=== PATIENT | male | born 1955 | race Caucasian/White ===

== ENCOUNTER 2016-10-04 12:26 | Inpatient (IN) | payer OTHER ==
[2016-10-04] VITALS (8 sets, daily range): BP systolic 103–133; BP diastolic 58–80; PULSE 64–165; RESP 16–32; O2SAT 95–97
[~2016-10-04] VITALS: Ht 177.8 cm; Wt 112.8 kg
[2016-10-04] MEDS ORDERED: Adenosine 3 mg/mL 2 mL Inj ONE (12:37)
[2016-10-04] MEDS ORDERED: Diltiazem 5 mg/mL 5 mL Inj ONE (12:43)
--- NOTE | 2016-10-04 12:51 | ED.REPORT ---
HPI-General Illness Date of Service Oct 04, 2016 ED Provider: Hilary Lee Patient is a 61 year old male with a hx of HTN, hyperlipidemia, and TIA who presents to the ED complaining of SOB. He was in his yard on a ladder, cutting tree branches when he became short of breath. On his way to the hospital he had to pull off the freeway twice due to near syncope. He denies headache, chest pain, or any other symptoms. He has not had thyroid problems. He reports he also had a "heart racing incident " happen 3 days ago but thought it was related to the food he was eating. Nursing Notes Stated Complaint: NEAR SYNCOPE Chief Complaint: General Complaint Nursing Notes Reviewed: Yes Allergies: Coded Allergies: Penicillins (Verified Allergy, Mild, 10/04/16) Rupitxx-Tho-Gex Reductase Inhibitor (Verified Allergy, Mild, 10/04/16) Scheduled Fluticasone Propionate (Flonase Allergy Relief) 50 Mcg/Actuation [place].susp 2 SPRAY NOSTRIL BID Tamsulosin ER (Tamsulosin ER) 0.4 Mg Cap.er.24h 0.4 MG PO HS Verapamil SR (Verapamil SR) 180 Mg Cap24h.pel 180 MG PO QAM General Time Seen by MD: 12:50 Chief Complaint Other (Shortness of breath) Hx Obtained From: Patient Arrived By: Walk-in Sudden in Onset?: Yes Onset Occurred: Just prior to arrival Symptom Duration: Since onset Similar Sx Previous: No Past Medical History Past Medical History Notes: MRA 2 years ago with no brain abnormalities PCP Rosy Borja Past Medical History Urninary retention Reports: Hyperlipidemia, Hypertension, Transient ischemic attack, Denies: Diabetes mellitus Ambulatory Status Independent Review of Systems Full Review of Systems Respiratory: Reports: Shortness of breath Cardiovascular: Reports: Palpitations, Syncope, Denies: Chest pain Neurologic: Denies: Headache Complete sys rev & neg: except as marked. Physical Exam Vital Signs Vital Signs Date Time Temp Pulse Resp B/P Pulse Ox O2 Delivery O2 Flow Rate FiO2 10/04/16 14:24 119 20 103/72 97 Nasal Cannula 2 10/04/16 13:18 90 32 113/58 95 Nasal Cannula 2 10/04/16 12:29 36.3 165 20 116/75 97 Room Air Initial VS: Reviewed, Vital signs abnormal Head / Eyes: Atraumatic, Normocephalic Neck: Full range of motion Abdomen / GI: Soft, Non-tender Extremities: No swelling Skin: Warm, Dry Neurologic: Alert, Oriented, Nonfocal Psychiatric: Mood/affect normal, Behavior normal, Normal thought content General/Constitutional: Awake, Alert, Well developed Neck: Thyroid NL Respiratory / Chest: Breath sounds NL, Breath sounds = bilat, No respiratory distress Heart Rate / Rhythm: Positive: Irreg irregular rhythm, Tachycardia Interpretation & Diagnostics Lab Results Interpretation Result Diagram: 10/04/16 1245 10/04/16 1245 Test 10/04/16 12:45 10/04/16 13:45 10/04/16 14:40 White Blood Count 11.3th/mm3 (3.8-10.1) Red Blood Count 5.67mil/mm3 (4.40-5.80) Hemoglobin 16.3g/dL (13.8-17.2) Hematocrit 47.6% (41.0-50.0) Mean Corpuscular Volume 84.0fL (81-100) Mean Corpuscular Hemoglobin 28.7pg (27.0-35.0) Mean Corpuscular Hemoglobin Concent 34.2% (32.0-37.0) Red Cell Distribution Width 13.3% (12.3-15.4) Platelet Count 295bil/L (150-400) Neutrophils (%) (Auto) 79.2% (40-74) Lymphocytes (%) (Auto) 10.8% (14-46) Monocytes (%) (Auto) 6.4% (4-12) Eosinophils (%) (Auto) 2.9% (0-5) Basophils (%) (Auto) 0.5% (0-3) Sodium Level 140mEq/L (134-144) Potassium Level 4.0mEq/L (3.5-5.2) Chloride Level 103mEq/L (97-108) Carbon Dioxide Level 20mmol/L (18-29) Blood Urea Nitrogen 16mg/dL (8-27) Creatinine 1.31mg/dL (0.76-1.27) Estimat Glomerular Filtration Rate 59mL/min (>59) Glucose Level 101mg/dL (60-99) Calcium Level 9.9mg/dL (8.5-10.1) Magnesium Level 2.2mg/dL (1.6-2.6) Total Bilirubin 0.4mg/dL (0.0-1.2) Aspartate Amino Transf (AST/SGOT) 27U/L (0-50) Alanine Aminotransferase (ALT/SGPT) 41U/L (0-44) Alkaline Phosphatase 64U/L (25-160) Troponin T 0.013ug/L (0.0-0.011) Total Protein 7.0g/dL (6.4-8.4) Albumin 4.3g/dL (3.4-5.0) Hold Urine Received (Received) ECG Interpretation ECG Interpretation: In and out of Sinus and atrial flutter with RVR rate of 156 Time: 12:52 Interpreted by: ED physician X-Ray Chest Interpretation Chest Xray Interpretation: IMPRESSION: Negative chest. No acute cardiopulmonary process is evident. Dictated by: Mahin Head M.D. on 10/04/2016 at 12:57 Approved by: Mahin Head M.D. on 10/04/2016 at 12:57 View: Portable, 1 view Interpretation / Wet Read by: Interpret - Radiologist Re-Eval/Medical Decision Med Decision/Clinical Course 61-year-old woman with a history of hypertension and BPH presents with paroxysmal atrial fibrillation/atrial flutter with rapid ventricular response. Apparently he was up on a ladder noticed that he felt lightheaded we came down noticed that he was unable to feel his radial pulse. Medics were called and found him to be in atrial flutter in the 220 range he felt slightly short of breath mildly lightheaded but was alert and able to give a coherent history. Denies any drug use stimulants thyroid is being checked he says that he has had an episode of rapid heart rate that he noted on Tuesday but no previous history of such. During our exam his rate and rhythm is entirely erratic. He will convert to sinus rhythm for anywhere from 30 seconds to 3 minutes and will go to an atrial fibrillation in the 140-160 range than to an atrial flutter in the 200-220 range and this back and forth between each of these rapidly and seemingly without much distress. He is very aware of the rapid rhythms. His systolic blood pressures in the 100 100s and 10 range. He did take his morning verapamil for blood pressure control. He is given a liter of fluid to help with blood pressure support so we have more options with rate control medications. Spoke with Dr. Cook, cardiology. He agreed with trying amiodarone and will do an initial load of 150 mg IV over an hour to try and avoid any hypotensive effects. Will be admitted to stepdown bed with amiodarone drip. Primary service will be the hospitalist service and Dr. Neves will consult Time of Eval: 13:30 Re-Evaluation/Progress Note: Rechecked patient. Discussed plan for admission. Patient understands and agrees with plan. All questions addressed at this time. Consultation : Referral / Consult Name: Jack Cook MD Consulted With: Cardiology Call Returned at: 13:36 Felling Machine Operator: Agrees with eval, Agrees with plan Note: Discussed pt case. Suggests amiodarone. Agrees to consult. Counseled Regarding: Diagnosis, Lab results, Need for admission Discharge & Departure Primary Impression: Atrial fibrillation with RVR Additional Impression: Elevated troponin Disposition: ADMITTED TO HOSPITAL Discharge Condition All VS Reviewed: Yes Condition: Stable Referrals: OTHER,PHYSICIAN Crit Care Except Billable Proc Time Spent: 30-74 minutes Services Performed: Patient management by me, Time spent at bedside, Reviewing test results, Reviewing imaging, Discussing patient care, Documentation in record, Time with fam/surrogate Scribe Attestation Portions of this note were transcribed by Jack Mart. I, Dr. Lee personally performed the history, physical exam and medical decision-making; I reviewed and confirmed the accuracy of the information in the transcribed note. Signed by: Jack Mart 10/04/16, 1442 Hilary Lee MD Oct 04, 2016 12:51 JACK MART Oct 04, 2016 12:55
[2016-10-04] MEDS ORDERED: 0.9% Sodium Chloride 1,000 ML IV ONE (12:55)
[2016-10-04 13:01] LABS: BASOPHILS % (AUTO) 0.5 % (0-3); EOSINOPHILS % (AUTO) 2.9 % (0-5); MONOCYTES % (AUTO) 6.4 % (4-12); Mean Corpuscular Hemoglobin 28.7 pg (27.0-35.0); NEUTROPHILS % (AUTO) 79.2 % (40-74); Platelet Count 295 bil/L (150-400)
[2016-10-04 13:26] LABS: TROPONIN T 0.013 ug/L (0.0-0.011)
[2016-10-04 13:37] LABS: Magnesium 2.2 mg/dL (1.6-2.6)
[2016-10-04] MEDS ORDERED: Amiodarone 150 mg/100 mL D5W 150 MG in IV Premix 1 EACH IV ONE (13:45)
--- NOTE | 2016-10-04 13:58 | DRSVH ---
PROCEDURE: X-RAY CHEST ONE VIEW, PORTABLE ([id number]) INDICATIONS: TACHYCARDIA TECHNIQUE: One view of the chest was acquired. COMPARISON: None. FINDINGS: Surgical changes and devices: None. Lungs and pleura: No pleural effusions or pneumothorax. Lungs are clear. Mediastinum: Mediastinal contours appear normal. Heart size is normal. Bones and chest wall: No suspicious bony lesions. Overlying soft tissues appear unremarkable. IMPRESSION: Negative chest. No acute cardiopulmonary process is evident. Dictated by: Mahin Head M.D. on 10/04/2016 at 12:57 Approved by: Mahin Head M.D. on 10/04/2016 at 12:57
[2016-10-04] MEDS ORDERED: TAMS0.4C29 PO (14:30)
[2016-10-04] MEDS ORDERED: FLUT9.9S NOSTRIL (14:30)
[2016-10-04] MEDS ORDERED: VERA180C4 PO (14:30)
[2016-10-04] MEDS ORDERED: Ondansetron 2 mg/mL 2 mL Inj IVPUSH PRN (15:20)
[2016-10-04] MEDS ORDERED: Alum-Mag Hydrox-Simeth 30 mL Suspension PO PRN (15:20)
[2016-10-04] MEDS ORDERED: Polyethylene Glycol (PEG) 17 Gm Powder PO PRN (15:20)
--- NOTE | 2016-10-04 17:08 | NUR ---
Admit The pt was admitted to the unit at 1600 from the ED. VSS; TELE SR in the 70-80's. No complaints of pain. Pt oriented to the room; A&O and states no needs at this time.
[2016-10-04] MEDS: Verapamil SR 180 mg ER12 Tablet PO SCH (18:20)
--- NOTE | 2016-10-04 18:25 | PCM.HPMED ---
Subjective Date of Service Oct 04, 2016 Primary Provider: Admitting Physician: David Mckeon MD Primary Care Physician: Alexandra Hernandez MD Attending Physician: David Mckeon MD Chief Complaint: Shortness of breath History of Present Illness: Patient is a 61 year old male with a hx of HTN, hyperlipidemia, and TIA who presents to the ED complaining of SOB. He was in his yard on a ladder, cutting tree branches when he became short of breath. On his way to the hospital he had to pull off the freeway twice due to near syncope. He denies headache , no chest pain, or any other symptoms. He had a pervious episode a couple of weeks ago , feeling his heart was racing . He said he though it was something he ate. The episode revolved in its own He has few past medical problem beyond hypertension for which he takes verapmil and BPH IN ER patient was tachycardic with hHR in the 120. Review of Systems: A comprehensive review x 12 points is negative except for shortness of breath as described in HPI Allergies Coded Allergies: Penicillins (Verified Allergy, Mild, 10/04/16) Jzbfncz-Kjc-Ysq Reductase Inhibitor (Verified Allergy, Mild, 10/04/16) Home Medications Fluticasone Propionate (Flonase Allergy Relief) 50 Mcg/Actuation [place].susp 2 SPRAY NOSTRIL BID Tamsulosin ER (Tamsulosin ER) 0.4 Mg Cap.er.24h 0.4 MG PO HS Verapamil SR (Verapamil SR) 180 Mg Cap24h.pel 180 MG PO QAM PMH Urinary retention Hyperlipidemia, Hypertension Transient ischemic attack, Surgical History Abdominal and inguinal hernia repair Family History Reviewed and non contributory to the present illness Social History Hx Alcohol Use: Yes (maybe once a year) Hx Substance Use: No Living Arrangement: with Family Exam Vital Signs Vital Sign - Last Date Time Temp Pulse Resp B/P Pulse Ox O2 Delivery O2 Flow Rate FiO2 10/04/16 16:56 37.0 64 16 122/78 97 Room Air 10/04/16 15:56 2 Exam Genera; Overweight male. NAD, BMI 34 HEENT: Atraumatic, Normocephalic, sclerae is anicteric Neck: Full range of motion. No JVD, trachea is midline Chest : Normal respiratory effort. No chest wall tenderness Lung :Clear B/l. Heart : S1S2, regular, no gallop, no murmur Abdomen / GI: Soft, Non-tender, no palp mass. BS normal all quadrants Extremities: No swelling, no cyanosis Skin: Warm, Dry, no ulcer. Neurologic: Alert, Oriented, Non focal Psychiatric: Mood/affect normal, Behavior normal, Normal thought content Lab and Diagnostics Result Diagram: 10/04/16 1245 10/04/16 1245 X-Rays, CTs and MRIs Chest X-ray personally reviewed : Negative chest. No acute cardiopulmonary process is evident. Assessment & Plan 1. Tachy / Bradycardia syndrome 2. Hypertension 3. Hyperlipidemia 4. H/o TIA Patient is hemodynamically and clinically stable at this time . HR is controlled after IV amiodarone injection. ER physician contacted groundwater monitoring technician cardiology who will see the patient in consultation . Telemetry monitoring. Serial troponin . Obtain echocardiogram Lipid panel , TSH, A1c Continue Verapamil SR 180 mg PO daily This is an initial plan od care and will be per clinical course and per cardiology Patient discussed over the phone With ER physician Dr Lee VTE Prophylaxis: Sub-Q Heparin (Unfractionated) Resuscitation Status: CPR: Attempt Resuscitation Time spent 75 minutes David Mckeon MD Oct 04, 2016 18:25
[2016-10-05] VITALS (7 sets, daily range): BP systolic 115–141; BP diastolic 59–77; PULSE 58–73; RESP 17–23; O2SAT 94–97
--- NOTE | 2016-10-05 04:06 | NUR ---
Cardiac/Resp Patient resting in bed this shift, denies chest pain or shortness of breath, HR SB-SR and no ectopy noted, patient states he is hard of hearing and has 85% hearing loss in right ear, no distress noted, no A-Fib with RVR this shift, HR has been 50-60's. Uneventful shift, will continue to monitor. Addendum: 10/05/16 at 0414 by SHARON MARTINEZ RN Amended: Links added.
[2016-10-05 04:26] LABS: TROPONIN T 0.01 ug/L (0.0-0.011)
[2016-10-05] MEDS ORDERED: Fluticasone 0.05% 15 Spray/2 Gm 16 Gm Nasal Spray NASAL SCH (08:30)
[2016-10-05] MEDS: Verapamil SR 180 mg ER12 Tablet PO SCH (08:47)
--- NOTE | 2016-10-05 16:35 | NUR ---
Social Work Note: Screen Note Data& Assessment: EMR reviewed. Antonio Holden is a 61 year old male admitted on 10/04/2016 for AFIB Flutter with RVR. Pt has [employer] Traditional Med Plan and sees Alexandra Javier MD for primary care. [place] in [place] family and is independent at baseline. Pt independent in his room. No discharge needs identified at this time. SW to continue to follow for pt needs and MD orders if indicated. Plan: Anticipated discharge home via POV when medically ready. SW to continue to follow for pt needs and MD orders if indicated. BRONSON Shay
--- NOTE | 2016-10-05 17:01 | PCM.DIMED ---
Discharge Instructions Date of Service Oct 05, 2016 Dates of Hospitalization Oct 04, 2016 at 15:46 Discharge Diagnosis Discharge Diagnosis 1. Paroxysmal atrial fibrillation , with rapid response. Resolved. 2. Hypertension 3. Hyperlipidemia 4. H/o TIA Diet Discharge Diet: No restrictions Activity Discharge Activity: No restrictions Call your provider Call your provider for: Shortness of breath, Chest pain Patient Instructions Patient Instructions Please see your PCP, Dr Hernandez within a week. She will likely refer you to a commissions specialist. Follow-up with PCP in: 1 week Preet Oden MD Oct 05, 2016 17:01
[2016-10-05] MEDS ORDERED: APIX5TAB PO (17:06)
[2016-10-05] MEDS ORDERED: METO25TA99 PO (17:06)
--- NOTE | 2016-10-05 17:31 | NUR ---
Discharge instructions discussed for follow-up and medications, plan of care. Feeling well, no c/o SOB or pain, up indep. ECHO done/pending results. Discharged to home with daughter at 1735.
--- NOTE | 2016-10-05 17:39 | DRSVH ---
[facility] [address] [place] [address] Echocardiogram Report Name: CONNIE VILLALOBOS JStudy Date: 10/05/2016 Height: 70 in Hospital Exam Location: [facility] Weight: 249 lb Gender: Male BSA: 2.3 m2 : 1955 Age: 61 yrs BP: 141/74 mmHg Reason For Study: Atrial fibrillation Ordering Physician[facility] By: Jens Dale Referring Physician: VERNA MURILLO Interpretation Summary The left ventricle is borderline dilated. Left ventricular systolic function is mildly reduced. The ejection fraction is estimated to be 45-50%. Regional wall motion abnormalities cannot be excluded due to limited visualization. Suggest repeat a limited study with Definity contrast to further evaluate anterior wall. Assessment of diastolic parameters indicates a relaxation abnormality of the left ventricle, consistent with normal filling pressures. The right ventricle grossly appears normal in size with probable normal systolic function. Pulmonary artery pressures cannot be estimated because of the lack of a measurable TR jet velocity. Both atria are normal in size. There is mild mitral regurgitation. There is no other significant valvular heart disease. The aortic root is mildly dilated. The ascending aorta is mildly enlarged. Procedure: A two-dimensional transthoracic echocardiogram with color flow and Doppler was performed. The study quality was technically adequate. There is no prior echocardiogram noted for this patient. The heart rate ranged between 54-65 bpm during the study. Left Ventricle: The left ventricle is borderline dilated. Left ventricular wall thickness is at the upper limits of normal. Left ventricular systolic function is mildly reduced. The ejection fraction is estimated to be 45-50%. Regional wall motion abnormalities cannot be excluded due to limited visualization. Suggest repeat a limited study with Definity contrast to further evaluate anterior wall. Assessment of diastolic parameters indicates a relaxation abnormality of the left ventricle, consistent with normal filling pressures. Right Ventricle: The right ventricle grossly appears normal in size with probable normal systolic function. Atria: Both atria are normal in size. The interatrial septum is intact with no evidence for an atrial septal defect. Mitral Valve: The mitral valve is normal. There is mild mitral regurgitation. Aortic Valve: The aortic valve is normal in structure and function. No aortic regurgitation is present. Tricuspid Valve: The tricuspid valve is not well visualized, but is grossly normal. Pulmonary artery pressures cannot be estimated because of the lack of a measurable TR jet velocity. Pulmonic Valve: The pulmonic valve leaflets are thin and pliable; valve motion is normal. There is a trace or physiologic amount of pulmonic regurgitation. There is no other significant valvular heart disease. Great Vessels: The aortic root is mildly dilated. The ascending aorta is mildly enlarged. The pulmonary artery is normal size. The IVC is of normal diameter and collapses greater than 50% with a sniff. This suggests a low right atrial pressure of 3 mm Hg. Pericardium/ Pleura There is no pericardial effusion. There is no pleural effusion. MMode/2D Measurements & Calculations LVIDd: 5.8 cm RA long axis: 4.6 cm LVOT diam: 2.3 cm LVIDs: 4.3 cm LA A2 area: 21.7 cm AoV Opening FS: 25.4 % LA A4 area: 19.6 cm RA area: 15.8 cm EPSS: 0.64 cm LA length (vol) RA vol: 46.3 ml Ao root diam IVSd: 1.0 cm RA : 20.2 ml/m2 LVPWd: 1.0 cm LA vol: 68.7 ml asc Aorta Diam LA vol index Ao Arch Diam (Prox : 30.0 ml/m2 Trans): 3.4 cm EDV(MOD-sp2) LV white. diameter/BSA LV sys. diameter/BSA RVD1 (basal) (cm/m^2): 2.5 (cm/m^2): 1.9 : 3.5 cm ESV(MOD-sp2) EF(MOD-sp2) TAPSE: 1.9 cm Doppler Measurements & Calculations Ao V2 max: 140.3 cm/secMV E max alin MV E/A: 0.91 PA V2 max Ao max P.9 mmHg : 59.9 cm/sec Med Peak E' Alin : 73.9 cm/sec Ao mean P.7 mmHg MV A max alin PA mean PG LVOT Max Alin : 66.1 cm/sec E/E' med: 12.4 : 1.3 mmHg : 95.0 cm/sec Lat Peak E' Alin JOSH(I,D): 3.2 cm E/E' lat: 10.2 sev ratio: 0.77 E/e' average MV dec time: 0.18 sec Ao V2 mean LV V1 max PG PA V2 mean : 89.5 cm/sec : 55.7 cm/sec Ao V2 VTI: 24.2 cmLV V1 VTI: 18.6 cm PA pr(Accel) : 27.6 mmHg JOSH(V,D): 2.8 cm2 JOSH indexed to BSA (cm^2/m^2): 1.4 Reading Physician:CRISTINA
--- NOTE | 2016-10-06 07:42 | PCM.DC.MED ---
Discharge Summary Date of Service Oct 05, 2016 Dates of Hospitalization Date of Hospital Admission Oct 04, 2016 at 15:46 Date of Discharge: Oct 05, 2016 Providers: Admitting Physician: David Mckeon MD Primary Care Physician: Alexandra Hernandez MD Attending Physician: David Mckeon MD Diagnosis at Time of Discharge Diagnosis at Time of Discharge 1. Paroxysmal atrial fibrillation , with rapid response. Resolved. 2. Hypertension 3. Hyperlipidemia 4. H/o TIA Consultations None Procedures XRay, CTs & MRIs Chest X-ray personally reviewed : Negative chest. No acute cardiopulmonary process is evident. ECG 12 Lead AF with RVR Cardiac Echo Impression Interpretation Summary The left ventricle is borderline dilated. Left ventricular systolic function is mildly reduced. The ejection fraction is estimated to be 45-50%. Regional wall motion abnormalities cannot be excluded due to limited visualization. Suggest repeat a limited study with Definity contrast to further evaluate anterior wall. Assessment of diastolic parameters indicates a relaxation abnormality of the left ventricle, consistent with normal filling pressures. The right ventricle grossly appears normal in size with probable normal systolic function. Pulmonary artery pressures cannot be estimated because of the lack of a measurable TR jet velocity. Both atria are normal in size. There is mild mitral regurgitation. There is no other significant valvular heart disease. The aortic root is mildly dilated. The ascending aorta is mildly enlarged. Brief History Patient is a 61 year old male with a hx of HTN, hyperlipidemia, and TIA who presents to the ED complaining of SOB. He was in his yard on a ladder, cutting tree branches when he became short of breath. On his way to the hospital he had to pull off the freeway twice due to near syncope. He denies headache , no chest pain, or any other symptoms. He had a pervious episode a couple of weeks ago , feeling his heart was racing . He said he though it was something he ate. The episode revolved in its own He has few past medical problem beyond hypertension for which he takes verapmil and BPH IN ER patient was tachycardic with hHR in the 120. Hospital Course 1. Paroxysmal atrial fibrillation with rapid ventricular response, POA. The patient was admitted with A. fib RVR. The patient was given amiodarone IV and had chemical conversion. No neurologic symptoms. He had good rate control for the remainder of his hospitalization. The patient had a 2-D echo which was negative for atrial dilation or significant bowel disease. He was diagnosed with nonvalvular atrial fibrillation. He was open to the addition of metoprolol for additional rate control as well as initiation of anticoagulation with. He will follow-up with his primary care doctor at [facility] within the next week, Dr. Hernandez. Exam Vital Signs (Last) Date Time Temp Pulse Resp B/P Pulse Ox O2 Delivery O2 Flow Rate FiO2 10/05/16 16:20 36.1 61 23 129/77 97 Room Air 10/04/16 15:56 2 Exam Patient was seen and examined on the day of discharge Test 10/04/16 12:45 10/04/16 13:45 10/05/16 03:22 White Blood Count 11.3th/mm3 (3.8-10.1) Red Blood Count 5.67mil/mm3 (4.40-5.80) Hemoglobin 16.3g/dL (13.8-17.2) Hematocrit 47.6% (41.0-50.0) Mean Corpuscular Volume 84.0fL (81-100) Mean Corpuscular Hemoglobin 28.7pg (27.0-35.0) Mean Corpuscular Hemoglobin Concent 34.2% (32.0-37.0) Red Cell Distribution Width 13.3% (12.3-15.4) Platelet Count 295bil/L (150-400) Neutrophils (%) (Auto) 79.2% (40-74) Lymphocytes (%) (Auto) 10.8% (14-46) Monocytes (%) (Auto) 6.4% (4-12) Eosinophils (%) (Auto) 2.9% (0-5) Basophils (%) (Auto) 0.5% (0-3) Hemoglobin A1c 6.3% (4.8-5.6) Magnesium Level 2.2mg/dL (1.6-2.6) Thyroid Stimulating Hormone (TSH) 2.340uIU/mL (0.450-4.500) Hold Urine Received (Received) Sodium Level 142mEq/L (134-144) Potassium Level 4.2mEq/L (3.5-5.2) Chloride Level 107mEq/L (97-108) Carbon Dioxide Level 21mmol/L (18-29) Blood Urea Nitrogen 14mg/dL (8-27) Creatinine 1.16mg/dL (0.76-1.27) Estimat Glomerular Filtration Rate 68mL/min (>59) Glucose Level 107mg/dL (60-99) Calcium Level 9.4mg/dL (8.5-10.1) Total Bilirubin 0.5mg/dL (0.0-1.2) Aspartate Amino Transf (AST/SGOT) 21U/L (0-50) Alanine Aminotransferase (ALT/SGPT) 33U/L (0-44) Alkaline Phosphatase 53U/L (25-160) Troponin T 0.010ug/L (0.0-0.011) Total Protein 5.6g/dL (6.4-8.4) Albumin 3.9g/dL (3.4-5.0) Triglycerides Level 72mg/dL (0-149) Cholesterol Level 253mg/dL (100-199) LDL Cholesterol, Calculated 191.600mg/dL (0-99) VLDL Cholesterol 14.400mg/dL HDL Cholesterol 47mg/dL (>39) Cholesterol/HDL Ratio 5.38 (0.0-4.4) Discharge Medications Discharge Medications Apixaban (Eliquis) 5 Mg Tablet 5 MG PO BID Prescribed by: VERNA MURILLO MD Fluticasone Propionate (Flonase Allergy Relief) 50 Mcg/Actuation [place].susp 2 SPRAY NOSTRIL BID (Reported) Metoprolol Succinate ER (Metoprolol Succinate ER) 25 Mg Tab.er.24h 25 MG PO DAILY Prescribed by: VERNA MURILLO MD Tamsulosin ER (Tamsulosin ER) 0.4 Mg Cap.er.24h 0.4 MG PO HS (Reported) Verapamil SR (Verapamil SR) 180 Mg Cap24h.pel 180 MG PO QAM (Reported) Followup Plan Disposition: Home Discharge Diet: No restrictions Discharge Activity: No restrictions Patient Instructions Please see your PCP, Dr Hernandez within a week. She will likely refer you to a computer hardware technician. Follow-up with PCP in: 1 week Time spent 45 minutes Verna Murillo MD Oct 06, 2016 07:42
== END 2016-10-05 17:30 | disposition home or self-care (01) | DRG 310 ==
LOC: SED 12:26 → CCU 15:46 → PCC 16:56
PROVIDERS: ADMIT Internal Medicine; ATTEND Internal Medicine
PROC: 3E040RZ Introduction of Antiarrhythmic into Central Vein, Open Approach (ICD-10-PCS; principal; 2016-10-04)
DX: I48.0 Paroxysmal atrial fibrillation (principal); E78.5 Hyperlipidemia, unspecified; I10 Essential (primary) hypertension; N40.1 Benign prostatic hyperplasia with lower urinary tract symptoms; R33.8 Other retention of urine; Z86.73 Personal history of transient ischemic attack (TIA), and cerebral infarction without residual deficits